=== PATIENT | male | born 1935 | race Caucasian/White ===

== ENCOUNTER → 2020-04-18 09:40 | Outpatient (CLI) | payer MEDICARE ==
[2016-09-20 10:42] VITALS: BMI 25.7
[~2020-04-18 09:40] MED LIST: BAYER CHEWABLE81 MG PO; BETAGAN 0.5% OPH5 ML EACH EYE; HYDROCODONE-APA1 TAB PO; LEVOTHYROXINE100 MCG PO; MEDROL DOSE PACK4 MG PO; NORVASC2.5 MG PO; OMNICEF300 MG PO; OXYCONTIN10 MG PO; PRAVACHOL20 MG PO; ZOVIRAX800 MG PO; ZYLOPRIM300 MG PO
== END | disposition home or self-care (01) ==
LOC: D.HCCECHO 09:40
PROVIDERS: ATTEND Internal Medicine Cardiovascular Disease
DX: I25.10 Atherosclerotic heart disease of native coronary artery without angina pectoris (principal)